=== PATIENT | female | born 1990 | race Caucasian/White ===

== ENCOUNTER 2023-01-28 19:19 | Inpatient (IN) | payer OTHER ==
[2023-01-28] MEDS ORDERED: hydrALAZINE HCL 20 MG/ML 1 ML VIAL IVP PRN ×3 (20:18)
[2023-01-28] MEDS ORDERED: LABETALOL 5 MG/ML VIAL MDV IVP PRN ×5 (20:18)
[2023-01-28] MEDS ORDERED: AMPICILLIN 2,000 MG in SODIUM CHLORIDE 0.9% 100 ML IVPB STA (20:24)
[2023-01-28] MEDS ORDERED: LIDOCAINE 0.5% (PF) 5 MG/ML (50 ML SDV) SQ PRN (20:24)
[2023-01-28] MEDS ORDERED: TERBUTALINE 1 MG/ML VIAL SQ PRN (20:24)
[2023-01-28] MEDS ORDERED: CARBOPROST TROMETHAMINE 250 MCG/ML 1 ML AMP IM PRN (20:24)
[2023-01-28] MEDS ORDERED: METHYLERGONOVINE 0.2 MG/ML 1 ML AMP IM PRN (20:24)
[2023-01-28] MEDS ORDERED: OXYTOCIN 10 UNIT/ML 1 ML VIAL IM PRN (20:24)
[2023-01-28] MEDS ORDERED: miSOPROStoL 200 MCG TAB PO PRN (20:24)
[2023-01-28] MEDS ORDERED: TRANEXAMIC 1,000 MG/100ML-NACL 1,000 MG in EMPTY BAG 1 BAG IV PRN (20:24)
[2023-01-28 20:58] LABS: Appearance,Urine Clear (Clear); Bilirubin,Urine Negative (Negative); Blood,Urine Negative (Negative); Color,Urine Light Yellow; Glucose,Urine (UA) Negative (Negative); Ketones,Urine Negative (Negative); Leukocyte Esterase,Urine Negative (Negative); Nitrite,Urine Negative (Negative); PH, Urine 6.5 (5.0-8.0); Protein,Urine Negative (Negative); Specific Gravity,Urine 1.008 (1.001-1.035); Urobilinogen,Urine <2.0 mg/dL (<2.0)
[2023-01-28] MEDS: LACTATED RINGERS 1,000 ML IV SCH (21:06)
[2023-01-28] MEDS ORDERED: CITRIC ACID-SODIUM CITRATE 15 ML CUP PO ONE (21:33)
[2023-01-28 21:58] LABS: Basophils % (A) 0 %; Eosinophils # (A) 0.4 k/uL (0-0.7); Eosinophils % (A) 3 %; HCT 40.2 % (34.0-46.0); HGB 13.2 gm/dL (11.4-16.0); Lymphocytes # (A) 1.7 k/uL (1.0-4.8); Lymphocytes % (A) 13 %; MCH 29.5 pg (25.0-35.0); MCHC 32.9 g/dL (31.0-37.0); MCV 89.5 fL (80.0-100.0); Mean Platelet Volume 8.8; Monocytes # (A) 0.7 k/uL (0-1.0); Monocytes % (A) 5 %; Neutrophils # (A) 10.3 k/uL (1.3-7.7); Neutrophils % (A) 77 %; Platelet Count 279 k/uL (150-450); RBC 4.49 m/uL (3.80-5.40); RDW 13.8 % (11.5-15.5); WBC 13.3 k/uL (3.8-10.6)
[2023-01-28] MEDS ORDERED: PROPOFOL 10 MG/ML 20 ML VIAL IV ONE (21:58)
[2023-01-28] MEDS ORDERED: SUCCINYLCHOLINE CHLORIDE 200 MG/10 ML VIAL IV ONE (21:58)
[2023-01-28] MEDS ORDERED: fentaNYL (PF) 50 MCG/ML 2 ML AMP ONE (21:58)
[2023-01-28] MEDS ORDERED: OXYTOCIN 30 UNITS/500 ML NS BAG IV ONE (21:58)
[2023-01-28] MEDS ORDERED: ONDANSETRON 4 MG/2 ML VIAL ONE (21:58)
[2023-01-28 22:06] LABS: INR 0.9 (<1.2); Partial Thromboplastin Time 23.9 sec (22.0-30.0); Prothrombin Time 9.3 sec (9.0-12.0)
[2023-01-28 22:19] LABS: Amphetamine Screen,Urine Not Detected (NotDetected); Barbiturate Screen,Urine Not Detected (NotDetected); Benzodiazepines Screen,Urine Not Detected (NotDetected); Cocaine Screen,Urine Not Detected (NotDetected); Methadone Screen, Urine Not Detected (NotDetected); Opiate Screen,Urine Not Detected (NotDetected); Oxycodone Screen, Urine Not Detected (NotDetected); Phencyclidine Screen,Urine Not Detected (NotDetected); Tricyclic Antidepressant,Urine Not Detected (NotDetected); Urn Cannabinoid Scrn Not Detected (NotDetected)
[2023-01-28 22:23] LABS: Creatinine,Urine Random 35.3 mg/dL; Protein/Creatinine Ratio,Urine 0.652
[2023-01-28] MEDS ORDERED: ZOLPIDEM 5 MG TAB PO PRN (22:33)
[2023-01-28] MEDS ORDERED: METOCLOPRAMIDE 5 MG/ML 2 ML VIAL IVP PRN (22:33)
[2023-01-28] MEDS ORDERED: NALOXONE 0.4 MG/ML 1 ML VIAL IV PRN (22:33)
[2023-01-28] MEDS ORDERED: diphenhydrAMINE 25 MG CAP PO PRN (22:33)
[2023-01-28] MEDS ORDERED: ONDANSETRON 4 MG/2 ML VIAL IVP PRN (22:33)
[2023-01-28] MEDS ORDERED: diphenhydrAMINE 50 MG CAP PO PRN (22:33)
[2023-01-28] MEDS ORDERED: SIMETHICONE 80 MG CHEWABLE PO PRN (22:33)
[2023-01-28] MEDS ORDERED: diphenhydrAMINE 50 MG/ML 1 ML VIAL IVP PRN ×2 (22:33)
--- NOTE | 2023-01-28 22:45 | P.HPOB ---
History of Present Illness H&P Date: 01/28/23 Chief Complaint: IUP at 40-5/7 weeks, severe preeclampsia, active labor This is a 32-year-old 0-1 at 40 and 5/7 weeks that presents to labor and delivery with complaints of regular painful contractions. Patient had significantly elevated blood pressures upon presentation to triage but was noted to be uncomfortable contractions. Patient was noted to be writhing in the bed. Patient states she did receive care in [place] where blood pressures were 140 to 150s over 90s no medication were given per her memory or her 's memory. Patient states that she had an ultrasound around 17 weeks for heart tones, she declined 20 week anatomy ultrasound as it was too much intervention. Patient denies signs or symptoms of preeclampsia. Her only complaint is pain with contractions. She denies loss of fluid or vaginal bleeding. RN HOSPITAL history 4 para [id number] spontaneous vaginal delivery, boy 6 pounds, states she had elevated blood pressures 160s over 90s with that delivery labor lasted approximately 18 hours labs pending states her blood type is O+ which patient confirms Review of Systems Constitutional: Denies chills, Denies fatigue, Denies fever Ears, nose, mouth and throat: Denies headache Cardiovascular: Reports leg edema Respiratory: Denies dyspnea Gastrointestinal: Denies nausea, Denies vomiting Genitourinary: Reports Past Medical History History of Any Multi-Drug Resistant Organisms: None Reported Smoking Status: Never smoker Medications and Allergies Home Medications Medication Instructions Recorded Confirmed Type Vit No.179/Iron/Folic 1 tab PO HS 01/28/23 01/28/23 History [ Tablet] Allergies Allergy/AdvReac Type Severity Reaction Status Date / Time morphine Allergy Mild Rash/Hives Verified 01/28/23 19:27 Sulfa (Sulfonamide Allergy Mild Rash/Hives Verified 01/28/23 19:27 Antibiotics) Exam Osteopathic Statement: *. No significant issues noted on an osteopathic structural exam other than those noted in the History and Physical/Consult. 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 Attempted application of scalp electrode, contractions are noted to be regular. heart tones were noted to be category 2, moderate variability, during conversation regarding plan of care heart tones are noted to have a deceleration to the 80s with some return to the 90s followed by moderate variability into the 100s. Results Result Diagrams: 01/28/23 20:40 Abnormal Lab Results - Last 24 Hours (Table) 01/28/23 Range/Units 19:28 U Random Total Protein 24 H (<12) mg/dL Assessment and Plan (1) Post-dates Narrative/Plan: Minimal care Current Visit: Yes Status: Acute Code(s): O48.0 - POST-TERM SNOMED Code(s): 43380976 (2) Severe pre-eclampsia Current Visit: Yes Status: Acute Code(s): O14.10 - SEVERE PRE-ECLAMPSIA, UNSPECIFIED TRIMESTER SNOMED Code(s): 52222214 (3) Thick meconium stained amniotic fluid Current Visit: Yes Status: Acute Code(s): P96.83 - MECONIUM STAINING SNOMED Code(s): 259340793 (4) Active labor Current Visit: Yes Status: Acute Code(s): FII5150 - SNOMED Code(s): 625573523 Plan: 32-year-old 0-1 at 40-5/7 weeks per patient and patient's presents with complaints of regular painful contractions. Patient was noted to have significantly elevated blood pressure upon presentation to triage. Blood pressures were elevated but patient was noted to be significantly painful contractions. Patient was monitored preeclampsia labs and IV labetalol were ordered. Minimal relief of blood pressure was appreciated after IV labetalol. Given category 2/3 heart tones decision was made to proceed with primary C- section secondary to nonreassuring heart tones. Patient were counseled on the need for emergent delivery secondary to severe preeclampsia, nonreassuring heart tones. They stated understanding and agreed with plan. Patient was taken back to the operating suite. Anesthesia was notified and on the way.
--- NOTE | 2023-01-28 22:53 | P.OP ---
Date of Procedure: 01/28/23 Preoperative Diagnosis: IUP at 40 5/7 weeks, meconium-stained fluid, severe preeclampsia, nonreassuring heart tones Postoperative Diagnosis: Same Procedure(s) Performed: Primary low transverse section Anesthesia: XAVIERA Surgeon: Evon Guerrero Computed Tomography Technologist #1: Renu Fernandes Estimated Blood Loss (ml): 500 IV fluids (ml): 800 Urine output (ml): 400 Pathology: other (Placenta) Condition: stable Disposition: observation Indications for Procedure: 32-year-old at 40-5/7 weeks that presented to labor and delivery with complaints of contractions. Patient minimal care in [place]. Patient had not established with a physician in the area. Patient has a history of severe preeclampsia with magnesium with her first delivery. Patient was noted have significantly elevated blood pressures upon initial presentation to triage and denied signs or symptoms of preeclampsia. Patient was placed in a labor and delivery suite where she was noted to be 5 cm, amniotomy is performed and mec onium-stained fluid was appreciated. heart tones were noted to be moderate variability category 2, while discussing plan of care with patient heart tones were noted to have a deceleration unknown origination as it was difficult to monitor given morbid obesity. Patient was counseled on heart tones into the 80s with return to 100s, moderate variability was appreciated. Patient was counseled on nonreassuring status and need for primary C- section. Patient and were counseled and questions were answered. Patient agreed with plan and was taken back to the operating suite. Operative Findings: Viable female infant delivered at 2202, weight of 5 lbs. 12 oz., Apgars of 6 and 9 at one and 5 minutes respectively. Normal uterus tubes and ovaries were appreciated. Description of Procedure: Patient was taken back to the operating suite where general anesthesia was obtained without difficulty by the anesthesia department. She was prepped and draped in normal sterile fashion in the dorsal supine position. A Pfannenstiel skin incision is made the scalpel and carried through the underlying layer fascia. The fascia was incised the midline and extended laterally. The superior aspect of the fascial incision was then grasped paz clamps, elevated and underlying rectus muscles dissected off sharply. The inferior aspect of the fascial incision was then grasped paz clamps, elevated and underlying rectus muscles dissected off sharply. Rectus muscles were in the midline the peritoneum was identified and entered. The bladder blade was then inserted into the pelvis. Hysterotomy incision was made with a scalpel as the bladder was noted to be free from the operating field. The was encountered in a vertex presentation, meconium-stained infant was appreciated. Infant was delivered in the usual fashion and handed off to waiting fur designer. Spontaneous cry was noted. The umbilical cord had been doubly clamped and cut and cord blood was taken. The placenta was delivered manually the uterus was exteriorized and cleared of all clots and debris. The uterine incision was closed 0 Vicryl in a running locked fashion a second imbricating suture was performed. Hemostasis was noted the uterus was then returned to the abdomen. The gutters were cleared of all clots and debris. A small amount bleeding was noted on the hysterotomy incision therefore a [id number] suture was used to obtain hemostasis. The hysterotomy incision was inspected hemostasis was noted. The peritoneum was then loosely reapproximated. The rectus muscles were inspected and found to be hemostatic. The fascia was then closed with 0 Vicryl in a running fashion from one lateral edge the midline and the other lateral edge the midline. Subcu tissue was irrigated found be hemostatic and closed with 3-0 Vicryl. The skin was then closed with 4-0 Vicryl subcuticular fashion.
[2023-01-28 23:04] LABS: ALT 18 U/L (4-34); AST 23 U/L (14-36); African American GFR (CKD) >90 (>60 ml/min/1.73 sqM); Blood Urea Nitrogen 11 mg/dL (7-17); LDH 186 U/L (120-246); Magnesium 1.7 mg/dL (1.6-2.3); Non-African American GFR(CKD) >90 (>60 ml/min/1.73 sqM)
[2023-01-28] MEDS ORDERED: MAGNESIUM SULFATE-WATER PMX 4 GM in WATER FOR INJECTION 1 100ML.BAG IVPB ONE (23:07)
[2023-01-28] MEDS: MAGNESIUM SULFATE-WATER PMX 20 GM in WATER FOR INJECTION 1 500ML.BAG IV SCH (23:33)
[2023-01-29] MEDS ORDERED: HYDROmorphone PCA 10 MG/50 ML BAG IV PRN
[2023-01-29] MEDS ORDERED: AMPICILLIN 1,000 MG in SODIUM CHLORIDE 0.9% 50 ML IVPB SCH (00:30)
[2023-01-29] MEDS: ACETAMINOPHEN IV (For NPO) 1,000 MG in EMPTY BAG 1 BAG IVPB SCH ×2 (00:37→08:05)
[2023-01-29] MEDS: LABETALOL 200 MG TAB PO SCH ×3 (00:39→21:01)
[2023-01-29] MEDS: LACTATED RINGERS 1,000 ML IV SCH ×6 (00:40→21:44)
[2023-01-29] MEDS: ACETAMINOPHEN TAB 500 MG TAB PO SCH ×4 (03:20→20:12)
[2023-01-29] MEDS: IBUPROFEN 600 MG TAB PO SCH ×3 (04:54→14:26)
[2023-01-29] MEDS: IBUPROFEN IV 800 MG in SODIUM CHLORIDE 0.9% 250 ML IV SCH ×3 (06:43→18:32)
[2023-01-29 07:24] LABS: Basophils % (A) 0 %; Eosinophils % (A) 0 %; HCT 33.9 % (34.0-46.0); HGB 11.5 gm/dL (11.4-16.0); Lymphocytes # (A) 1.2 k/uL (1.0-4.8); Lymphocytes % (A) 7 %; MCHC 33.9 g/dL (31.0-37.0); MCV 88.6 fL (80.0-100.0); Mean Platelet Volume 8.3; Monocytes # (A) 0.6 k/uL (0-1.0); Monocytes % (A) 3 %; Neutrophils # (A) 15.8 k/uL (1.3-7.7); Neutrophils % (A) 89 %; Platelet Count 263 k/uL (150-450); RBC 3.82 m/uL (3.80-5.40); RDW 13.7 % (11.5-15.5); WBC 17.8 k/uL (3.8-10.6)
[2023-01-29] MEDS: MAGNESIUM SULFATE-WATER PMX 20 GM in WATER FOR INJECTION 1 500ML.BAG IV SCH ×2 (08:05→17:41)
[2023-01-29] MEDS: SENNOSIDES-DOCUSATE SODIUM 1 EACH TAB PO SCH ×2 (08:36→20:15)
[2023-01-29] MEDS ORDERED: LABETALOL 200 MG TAB PO SCH (09:00)
--- NOTE | 2023-01-29 09:50 | P.PNOBGPC ---
Subjective - Subjective Principal diagnosis: Postop day 1, primary , NRFHTs, severe preeclampsia Interval history: Patient is doing well this morning. She appears comfortable in bed. She denies concerns. She states her pain is well-controlled. Her lochia is moderate. Manuel is draining clear yellow urine. Blood pressures are normal this morning, 132/52. Patient reports: Reports appetite normal, Reports voiding normally, Reports pain well controlled, Reports ambulating normally : doing well Objective - Vital Signs Latest vital signs: Vital Signs Temp Pulse Resp BP Pulse Ox 01/29/23 09:00 96.9 F L 88 18 132/58 97 01/29/23 08:00 97.5 F L 95 18 112/59 96 01/29/23 06:00 90 16 128/60 97 01/29/23 04:44 79 16 114/58 94 L 01/29/23 03:44 81 18 103/55 97 01/29/23 02:45 85 18 128/60 98 01/29/23 01:45 95 18 137/66 92 L 01/29/23 00:48 96 18 156/82 97 01/29/23 00:18 97.7 F 93 18 174/85 97 01/28/23 23:48 97.7 F 98 18 178/94 96 01/28/23 23:33 86 18 168/83 100 01/28/23 23:18 86 18 149/81 100 01/28/23 23:03 98 18 185/88 96 01/28/23 22:48 97.6 F 18 181/88 100 01/28/23 19:23 98.1 F 105 H 18 197/99 97 Intake and Output 01/28/23 01/29/23 01/29/23 22:59 06:59 14:59 Intake Total 925 426.667 Output Total 900 1000 550 Balance -900 -75 -123.333 Intake: IV 625 Intake, IV Titration 426.667 Amount Magnesium Sulfate-Water 426.667 Pmx 20 gm In Water For Injection 1 500ml.bag @ 2 GM/HR 50 mls/hr IV .Q10H [facility] Rx#:[id number] Oral 300 Output: Urine 400 830 550 Output, Quantitative 500 170 Blood Loss Other: Voiding Method Indwelling Catheter Indwelling Catheter Weight 127.006 kg - Exam Extremities: Present: normal, edema Abdomen: Present: normal appearance, soft Incision: Present: normal, dry, intact Uterus: Present: normal, firm - Labs Labs: Abnormal Lab Results - Last 24 Hours (Table) 01/28/23 01/28/23 01/28/23 Range/Units 19:28 20:40 20:40 WBC 13.3 H (3.8-10.6) k/uL Hct (34.0-46.0) % Neutrophils # 10.3 H (1.3-7.7) k/uL Fibrinogen 571 H (200-500) mg/dL Creatinine (0.52-1.04) mg/dL U Random Total Protein 24 H (<12) mg/dL 01/28/23 01/29/23 Range/Units 20:40 07:02 WBC 17.8 H (3.8-10.6) k/uL Hct 33.9 L (34.0-46.0) % Neutrophils # 15.8 H (1.3-7.7) k/uL Fibrinogen (200-500) mg/dL Creatinine 0.48 L (0.52-1.04) mg/dL U Random Total Protein (<12) mg/dL Assessment and Plan (1) Post-dates Current Visit: Yes Status: Acute Code(s): O48.0 - POST-TERM SNOMED Code(s): 67851676 (2) Severe pre-eclampsia Current Visit: Yes Status: Acute Code(s): O14.10 - SEVERE PRE-ECLAMPSIA, UNSPECIFIED TRIMESTER SNOMED Code(s): 73397732 (3) Thick meconium stained amniotic fluid Current Visit: Yes Status: Acute Code(s): P96.83 - MECONIUM STAINING SNOMED Code(s): 449187956 (4) Active labor Current Visit: Yes Status: Acute Code(s): CZW0799 - SNOMED Code(s): 664706745 (5) Non-reassuring status Current Visit: Yes Status: Acute Code(s): BNR2720 - SNOMED Code(s): 849802782 (6) S/P section Current Visit: Yes Status: Acute Code(s): Z98.891 - HISTORY OF UTERINE SCAR FROM PREVIOUS SURGERY SNOMED Code(s): 721319873 Plan: 32-year-old G4 now P2022 status post primary for nonreassuring heart tones and severe preeclampsia remote from delivery. Patient did well overnight. She is tolerating magnesium without difficulty. We'll plan to continue magnesium for 24 hours. Repeat preeclampsia labs will be ordered this morning. Pain is well-controlled with oral ibuprofen and Tylenol.
[2023-01-29 13:10] LABS: Basophils % (A) 0 %; Eosinophils # (A) 0.1 k/uL (0-0.7); Eosinophils % (A) 0 %; HCT 35.3 % (34.0-46.0); HGB 11.8 gm/dL (11.4-16.0); Lymphocytes # (A) 1.6 k/uL (1.0-4.8); Lymphocytes % (A) 10 %; MCH 30.1 pg (25.0-35.0); MCHC 33.5 g/dL (31.0-37.0); MCV 89.9 fL (80.0-100.0); Mean Platelet Volume 8.4; Monocytes # (A) 0.5 k/uL (0-1.0); Monocytes % (A) 3 %; Neutrophils # (A) 13.3 k/uL (1.3-7.7); Neutrophils % (A) 85 %; Platelet Count 299 k/uL (150-450); RBC 3.93 m/uL (3.80-5.40); RDW 14.1 % (11.5-15.5); WBC 15.6 k/uL (3.8-10.6)
[2023-01-29 13:15] LABS: ALT 18 U/L (4-34); AST 28 U/L (14-36); African American GFR (CKD) >90 (>60 ml/min/1.73 sqM); Blood Urea Nitrogen 7 mg/dL (7-17); LDH 263 U/L (120-246); Non-African American GFR(CKD) >90 (>60 ml/min/1.73 sqM); Uric Acid 4.3 mg/dL (3.7-7.4)
[2023-01-30] MEDS: PRENATAL VIT-IRON-FOLIC ACID 1 EACH TABLET PO SCH ×3 (00:09→19:45)
[2023-01-30] MEDS: IBUPROFEN 600 MG TAB PO SCH ×5 (00:20→23:40)
[2023-01-30] MEDS: ACETAMINOPHEN TAB 500 MG TAB PO SCH ×4 (03:44→19:43)
[2023-01-30] MEDS: LACTATED RINGERS 1,000 ML IV SCH (07:01)
--- NOTE | 2023-01-30 07:18 | P.PNOBGPC ---
Subjective - Subjective Principal diagnosis: Postop day 2, primary , severe preeclampsia, nonreassuring FHTs Interval history: Patient is doing well this morning. She is ambulating and voiding without difficulty. She is noting slight discomfort with ambulation. Magnesium was turned off last night. Blood pressures are slowly creeping up status post magnesium GTT. Blood pressure this morning 150s over 90s. Patient denies signs or symptoms of preeclampsia. Lochia is minimal. She is pumping as remains in the nursery. She denies nausea or vomiting is tolerating a regular diet. Patient reports: Reports appetite normal, Reports voiding normally, Reports pain well controlled, Reports ambulating normally [place]: doing well (In special care nursery) Objective - Vital Signs Latest vital signs: Vital Signs Temp Pulse Resp BP Pulse Ox 01/30/23 06:00 91 18 153/90 01/30/23 03:53 91 18 128/83 95 01/30/23 02:00 94 01/30/23 00:00 94 18 150/90 96 01/29/23 23:00 95 18 140/83 97 01/29/23 22:00 98.4 F 86 18 127/82 96 01/29/23 21:00 101 H 18 164/97 95 01/29/23 20:17 87 18 155/94 99 01/29/23 19:00 98.7 F 85 18 178/84 98 01/29/23 18:30 97.0 F L 91 18 141/69 98 01/29/23 17:00 97 18 136/62 98 01/29/23 16:00 98.5 F 89 18 154/74 98 01/29/23 15:00 98.5 F 91 18 141/65 97 01/29/23 14:00 98.0 F 93 18 139/81 97 01/29/23 13:00 97.4 F L 92 18 141/73 97 01/29/23 12:00 96.9 F L 89 18 147/73 98 01/29/23 11:00 97.2 F L 91 18 138/70 98 01/29/23 10:00 97.8 F 83 18 128/66 99 01/29/23 09:00 96.9 F L 88 18 132/58 97 01/29/23 08:00 97.5 F L 95 18 112/59 96 Intake and Output 01/29/23 01/30/23 01/30/23 22:59 06:59 14:59 Intake Total 480 293.333 Output Total 2600 2150 Balance -2120 -1856.667 Intake: Intake, IV Titration 480 293.333 Amount Magnesium Sulfate-Water 480 293.333 Pmx 20 gm In Water For Injection 1 500ml.bag @ 2 GM/HR 50 mls/hr IV .Q10H [facility] Rx#:[id number] Output: Urine 2600 2150 Other: Voiding Method Indwelling Catheter Indwelling Catheter # Voids 0 Weight 128.73 kg - Exam Extremities: Present: normal. Absent: edema Abdomen: Present: normal appearance Incision: Present: normal, intact Uterus: Present: normal, firm - Labs Labs: Abnormal Lab Results - Last 24 Hours (Table) 01/29/23 01/29/23 01/29/23 Range/Units 07:02 12:36 12:36 WBC 17.8 H 15.6 H (3.8-10.6) k/uL Hct 33.9 L (34.0-46.0) % Neutrophils # 15.8 H 13.3 H (1.3-7.7) k/uL Fibrinogen 560 H (200-500) mg/dL Lactate Dehydrogenase (120-246) U/L 01/29/23 Range/Units 12:36 WBC (3.8-10.6) k/uL Hct (34.0-46.0) % Neutrophils # (1.3-7.7) k/uL Fibrinogen (200-500) mg/dL Lactate Dehydrogenase 263 H (120-246) U/L Assessment and Plan (1) Post-dates Current Visit: Yes Status: Acute Code(s): O48.0 - POST-TERM SNOMED Code(s): 89294580 (2) Severe pre-eclampsia Current Visit: Yes Status: Acute Code(s): O14.10 - SEVERE PRE-ECLAMPSIA, UNSPECIFIED TRIMESTER SNOMED Code(s): 23619063 (3) Thick meconium stained amniotic fluid Current Visit: Yes Status: Acute Code(s): P96.83 - MECONIUM STAINING SNOMED Code(s): 483454468 (4) Active labor Current Visit: Yes Status: Acute Code(s): UMA8478 - SNOMED Code(s): 411168713 (5) Non-reassuring status Current Visit: Yes Status: Acute Code(s): UWM4972 - SNOMED Code(s): 796472906 (6) S/P section Current Visit: Yes Status: Acute Code(s): Z98.891 - HISTORY OF UTERINE SCAR FROM PREVIOUS SURGERY SNOMED Code(s): 164205570 Plan: Patient is overall doing well, will restart 200 mg twice daily given elevation of blood pressures. We'll continue to monitor blood pressures closely and adjust medication as needed. Patient is counseled on plan of care and states understanding.
[2023-01-30] MEDS: LABETALOL 200 MG TAB PO SCH ×3 (08:30→19:44)
[2023-01-30] MEDS: SENNOSIDES-DOCUSATE SODIUM 1 EACH TAB PO SCH ×2 (10:08→19:43)
[2023-01-31] MEDS: ACETAMINOPHEN TAB 500 MG TAB PO SCH ×4 (02:16→22:38)
[2023-01-31] MEDS: IBUPROFEN 600 MG TAB PO SCH ×4 (04:59→22:39)
[2023-01-31] MEDS: SENNOSIDES-DOCUSATE SODIUM 1 EACH TAB PO SCH ×2 (08:25→22:39)
[2023-01-31] MEDS: LABETALOL 200 MG TAB PO SCH ×2 (10:00→16:02)
--- NOTE | 2023-01-31 15:59 | P.PN ---
Progress Note - Text Progress Note Date: 01/31/23 32-year-old postop day 3, status post primary for severe preeclampsia, nonreassuring heart tones. Patient has had noted elevated blood pressures today 150s over 90s. Patient has been treated with labetalol 200 mg. Patient is admitted very tired and not sleeping well in the hospital. She is very anxious to go home and feels her blood pressures are worse secondary to inability to sleep. Patient states she is considering medical advice but really just wants to go home. Patient states she would like to be discharged home and manage her blood pressures at home. She made comments "don't the common different strength". She states she will "get a good blood pressure cuff and manage herself" She has had very minimal care during this and I do suspect blood pressures have been elevated for quite some time Awaiting for p.m. vitals. Patient appears comfortable in wheelchair holding her daughter. Assessment postop day 3 primary Severe preeclampsia Nonreassuring heart tones Morbid obesity Plan Discussed reasoning for continuing to monitor blood pressures and detrimental concerns regarding preeclampsia diagnosis. Long discussion regarding need to titrate labetalol dose given current blood pressures. Addressed concerns regarding discomfort in the bed, surgical bed moved into her suite. I did offer Benadryl as a sleep aid which she states "she doesn't like taking medications". She states she will "consider my medical recommendations, she trusts some of my decisions" Discussed if she requests discharge it would be AGAINST MEDICAL ADVICE. Would ideally like to monitor blood pressures through the night and if good response from labetalol doses noted plan discharge tomorrow.
[2023-02-01] MEDS: PRENATAL VIT-IRON-FOLIC ACID 1 EACH TABLET PO SCH (00:31)
[2023-02-01] MEDS: LABETALOL 200 MG TAB PO SCH ×2 (00:34→07:41)
[2023-02-01] MEDS: IBUPROFEN 600 MG TAB PO SCH ×2 (06:30→07:41)
[2023-02-01] MEDS: ACETAMINOPHEN TAB 500 MG TAB PO SCH (06:30)
[2023-02-01] MEDS: SENNOSIDES-DOCUSATE SODIUM 1 EACH TAB PO SCH (07:41)
[2023-02-01 07:49] VITALS: BP 162/100; PULSE 89; RESP 16; TEMP 98.4
== END 2023-02-01 10:30 | disposition home or self-care (01) | DRG 787 ==
LOC: FBPOP 19:19 → 4FBP 20:17
PROVIDERS: ADMIT Obstetrics & Gynecology Obstetrics; ATTEND Obstetrics & Gynecology Obstetrics
PROC: 10D00Z1 Extraction of Products of Conception, Low, Open Approach (ICD-10-PCS; principal; 2023-01-28 21:00)
DX: O14.14 Severe pre-eclampsia complicating childbirth (principal); O99.354 Diseases of the nervous system complicating childbirth; G47.00 Insomnia, unspecified; O48.0 Post-term pregnancy; O76 Abnormality in fetal heart rate and rhythm complicating labor and delivery; E66.01 Morbid (severe) obesity due to excess calories; O99.214 Obesity complicating childbirth; O77.0 Labor and delivery complicated by meconium in amniotic fluid; Z37.0 Single live birth; Z3A.40 40 weeks gestation of pregnancy; Z88.5 Allergy status to narcotic agent; Z88.2 Allergy status to sulfonamides
CPT/HCPCS: 59025; 80306; 81003; 82565; 82570; 83615; 83735; 84112; 84156; 84450; 84460; 84520; 84550; 85025; 85384; 85610; 85730; 86850; 86900; 86901; 88307; 96365; 99213

== ENCOUNTER 2023-02-04 14:09 | Emergency (ER) | payer OTHER ==
--- NOTE | 2023-02-04 14:55 | ED ---
Abdominal Pain HPI - General Source: patient, RN notes reviewed Mode of arrival: ambulatory Limitations: no limitations - History of Present Illness MD Complaint: abdominal pain <Lima Brown - Last Filed: 02/04/23 15:09> <Leah Denise - Last Filed: 02/05/23 17:47> - General Chief Complaint: Abdominal Pain Stated Complaint: fever and pain post Time Seen by Provider: 02/04/23 14:50 - History of Present Illness Initial Comments: This is a 32-year-old female who presents to the emergency department for abdominal pain. Patient had a at this facility with Dr. Guerrero on 01/28. States she had a due to concerns with her baby's heart rate at the time. She did not have much care, however her prior was complicated by preeclampsia and she was told that when she had her on 01/28 that she had elevated BP. States that over the last few days, she has been having increasing lower abdominal pain, fevers, and headaches. (Lima Brown) Patient is a 32-year-old female who presents to the emergency department for abdominal pain. Patient is 1 week . She had with Dr. Guerrero on 01/28. Patient had preeclampsia during her she takes labetalol TID. Over the past couple days patient has had bladder pain, burning with urination, fever, headache. Patient has history of urinary tract infections states this feels similar. Denies side pain, back pain. She denies nausea and vomiting. Denies changes in bowel pattern. Patient presents with elevated blood pressure, states she took her morning and afternoon dose of labetalol today. (Leah Denise) - Related Data Home Medications Medication Instructions Recorded Confirmed Vit No.179/Iron/Folic 1 tab PO HS 01/28/23 01/28/23 [ Tablet] Previous Rx's Medication Instructions Recorded Cephalexin [Keflex] 500 mg PO Q6HR #28 cap 02/04/23 Allergies Allergy/AdvReac Type Severity Reaction Status Date / Time morphine Allergy Mild Rash/Hives Verified 02/04/23 14:31 Sulfa (Sulfonamide Allergy Mild Rash/Hives Verified 02/04/23 14:31 Antibiotics) Review of Systems ROS Other: All systems not noted in ROS Statement are negative. <TracekarthikfantaLima - Last Filed: 02/04/23 15:09> ROS Other: All systems not noted in ROS Statement are negative. <CameliaLeah - Last Filed: 02/05/23 17:47> ROS Statement: Those systems with pertinent positive or pertinent negative responses have been documented in the HPI. Past Medical History Past Medical History: Hypertension Additional Past Medical History / Comment(s): preclampsia History of Any Multi-Drug Resistant Organisms: None Reported Past Surgical History: Section, Tonsillectomy Additional Past Surgical History / Comment(s): Right leg surgery, wisdom teeth extraction Past Anesthesia/Blood Transfusion Reactions: No Reported Reaction Past Psychological History: No Psychological Hx Reported Smoking Status: Never smoker Past Alcohol Use History: None Reported Past Drug Use History: None Reported - Past Family History Father Family Medical History: Hypertension Mother Family Medical History: Cancer, Hypertension Additional Family Medical History / Comment(s): Ovarian cancer <JohnfantaLima - Last Filed: 02/04/23 15:09> General Exam Limitations: no limitations <TracekarthikfantaLima - Last Filed: 02/04/23 15:09> General appearance: alert Head exam: Present: atraumatic, normocephalic, normal inspection Eye exam: Present: normal appearance, PERRL, EOMI. Absent: scleral icterus, conjunctival injection, periorbital swelling Respiratory exam: Present: normal lung sounds bilaterally. Absent: respiratory distress, wheezes, rales, rhonchi, stridor Cardiovascular Exam: Present: regular rate, normal rhythm, normal heart sounds. Absent: systolic murmur, diastolic murmur, rubs, gallop, clicks GI/Abdominal exam: Present: soft, tenderness (suprapubic ), normal bowel sounds, other ( incision healing nicely no tenderness. No surrounding erythema, swelling, warmth, fluctuance). Absent: distended, guarding, rebound, rigid Neurological exam: Present: alert Psychiatric exam: Present: normal affect, normal mood Skin exam: Present: warm, dry, intact, normal color. Absent: rash <CameliaLeah - Last Filed: 02/05/23 17:47> - General Exam Comments Initial Comments: Visual Physical Exam Vital signs reviewed General: Well-appearing, nontoxic, no acute distress. Head: Normocephalic, atraumatic Eyes: PERRLA, EOMI ENT: Airway patent Chest: Nonlabored breathing Skin: No visual rash, normal skin tone Neuro: Alert and oriented 3 Musculoskeletal: No gross abnormalities I performed the QuickNote portion of this chart. Signed Lima Brown PA-C. (Lima Brown) Course Vital Signs 02/04/23 02/04/23 02/04/23 14:19 17:03 18:32 Temperature 98.6 F 98.0 F Pulse Rate 79 85 77 Respiratory 20 16 18 Rate Blood Pressure 144/84 165/110 164/103 O2 Sat by Pulse 97 95 98 Oximetry 02/04/23 19:56 Temperature Pulse Rate 85 Respiratory 19 Rate Blood Pressure 176/129 O2 Sat by Pulse 94 L Oximetry Medical Decision Making - Lab Data Result diagrams: 02/04/23 15:31 02/04/23 15:31 <Leah Denise - Last Filed: 02/05/23 17:47> - Medical Decision Making Was pt. sent in by a medical professional or institution ([facility], CORPORATE ACCOUNTING MANAGER, urgent care, hospital, or usp...) When possible be specific @ -No Did you speak to anyone other than the patient for history (EMS, parent, family, police, friend...)? What history was obtained from this source @ -No Did you review nursing and triage notes (agree or disagree)? Why? @ -I reviewed and agree with nursing and triage notes Were old charts reviewed (outside hosp., previous admission, EMS record, old EKG, old radiological studies, urgent care reports/EKG's, usp records)? Report findings @ -Reviewed previous admission note patient did leave AMA after delivery Differential Diagnosis (chest pain, altered mental status, abdominal pain women, abdominal pain men, vaginal bleeding, weakness, fever, dyspnea, syncope, headache, dizziness, GI bleed, back pain, seizure, CVA, palpatations, mental health)? @ Differential Abdominal Pain Women: Appendicitis, Cholecystitis, diverticulosis, ischemic bowel, pancreatitis, hepatitis, UTI, gastroenteritis, AAA, incarcerated hernia, bowel obstruction, constipation, inflammatory bowel, hepatitis, peptic ulcer disease, splenic infarction, perforated viscus, vulvitis, ovarian torsion, PID, kidney stone, placenta abruption, this is not meant to be an all-inclusive list EKG interpreted by me (3pts min.). @ -As above X-rays interpreted by me (1pt min.). @ -None done CT interpreted by me (1pt min.). @ -None done U/S interpreted by me (1pt. min.). @ -None done What testing was considered but not performed or refused? (CT, X-rays, U/S, labs)? Why? @Patient declined preeclampsia testing What meds were considered but not given or refused? Why? @ -Patient declined hypertensive medication, IV fluids, pain medication because she is requesting to go home Did you discuss the management of the patient with other professionals (professionals i.e. , PA, CORPORATE ACCOUNTING MANAGER, lab, RT, psych nurse, 7th grade social studies teacher, trigonometry tutor, teacher, search and rescue officer, case filler)? Give summary @ -No Was smoking cessation discussed for >3mins.? @ -No Was critical care preformed (if so, how long)? @ -No Were there social determinants of health that impacted care today? How? (Homelessness, low income, unemployed, alcoholism, drug addiction, transportation, low edu. Level, literacy, decrease access to med. care, [facility] [facility], rehab)? @ -No Was there de-escalation of care discussed even if they declined (Discuss DNR or withdrawal of care, Hospice)? DNR status @ -No What co-morbidities impacted this encounter? (DM, HTN, Smoking, COPD, CAD, Cancer, CVA, ARF, Chemo, Hep., AIDS, mental health diagnosis, sleep apnea, mor bid obesity)? @ -None Was patient admitted / discharged? Hospital course, mention meds given and route, prescriptions, significant lab abnormalities, going to OR and other pertinent info. @ Patient presenting for abdominal pain and fever. Currently afebrile. Patient is hypertensive at 165/110. Patient in no apparent distress. Her incision is healing nicely. Labs were drawn in triage but IV was not placed. Urinalysis is consistent with infection. There is mild leukocytosis at 11.3 and thrombocytosis of 472. Results discussed with patient. Clinical presentation consistent with urinary tract infection however patient is hypertensive with preeclampsia history. I recommended further preeclampsia labs, IV fluids, IV hypertension medication. Patient declines states her blood pressure is elevated because she is in the hospital and she is requesting to go home. I highly urged patient to stay. I even offered pain medication to see a blood pressure would improve with pain relief prior to hypertensive medication. Patient declined further testing, IV fluids, hypertensive medication, pain medication. We discussed the risks of untreated preeclampsia. Patient would still like to go home. She is signing out AGAINST MEDICAL ADVICE. She is discharged with Keflex for urinary tract infection. We discussed return parameters Undiagnosed new problem with uncertain prognosis? @ -No Drug Therapy requiring intensive monitoring for toxicity (Heparin, Nitro, Ins ulin, Cardizem)? @ -No Were any procedures done? @ -No Diagnosis/symptom? @Urinary tract infection, preeclampsia Acute, or Chronic, or Acute on Chronic? @Acute Uncomplicated (without systemic symptoms) or Complicated (systemic symptoms)? @ -Uncomplicated Side effects of treatment? @ -No Exacerbation, Progression, or Severe Exacerbation? @ -No Poses a threat to life or bodily function? How? (Chest pain, USA, LA, pneumonia, PE, COPD, DKA, ARF, appy, cholecystitis, CVA, Diverticulitis, Homicidal, Suicidal, threat to staff... and all critical care pts) @ -Yes Dr. Nagy is my attending (Leah Denise) - Lab Data Lab Results 02/04/23 02/04/23 02/04/23 Range/Units 15:31 15:31 15:31 WBC 11.3 H (3.8-10.6) k/uL RBC 3.76 L (3.80-5.40) m/uL Hgb 11.1 L (11.4-16.0) gm/dL Hct 33.9 L (34.0-46.0) % MCV 90.1 (80.0-100.0) fL MCH 29.5 (25.0-35.0) pg MCHC 32.7 (31.0-37.0) g/dL RDW 14.2 (11.5-15.5) % Plt Count 472 H (150-450) k/uL MPV 7.5 Neutrophils % 63 % Lymphocytes % 23 % Monocytes % 5 % Eosinophils % 5 % Basophils % 0 % Neutrophils # 7.2 (1.3-7.7) k/uL Lymphocytes # 2.6 (1.0-4.8) k/uL Monocytes # 0.6 (0-1.0) k/uL Eosinophils # 0.6 (0-0.7) k/uL Basophils # 0.1 (0-0.2) k/uL Sodium 135 L (137-145) mmol/L Potassium 4.6 (3.5-5.1) mmol/L Chloride 106 (98-107) mmol/L Carbon Dioxide 23 (22-30) mmol/L Anion Gap 6 mmol/L BUN 14 (7-17) mg/dL Creatinine 0.68 (0.52-1.04) mg/dL Est GFR (CKD-EPI)AfAm >90 (>60 ml/min/1.73 sqM) Est GFR (CKD-EPI)NonAf >90 (>60 ml/min/1.73 sqM) Glucose 79 (74-99) mg/dL Plasma Lactic Acid Michael 0.6 L (0.7-2.0) mmol/L Uric Acid 6.9 (3.7-7.4) mg/dL Calcium 8.9 (8.4-10.2) mg/dL Magnesium 2.1 (1.6-2.3) mg/dL Total Bilirubin 0.4 (0.2-1.3) mg/dL AST 31 (14-36) U/L ALT 29 (4-34) U/L Alkaline Phosphatase 126 (38-126) U/L Total Protein 6.7 (6.3-8.2) g/dL Albumin 3.6 (3.5-5.0) g/dL Urine Color Urine Appearance (Clear) Urine pH (5.0-8.0) Ur Specific Garrison (1.001-1.035) Urine Protein (Negative) Urine Glucose (UA) (Negative) Urine Ketones (Negative) Urine Blood (Negative) Urine Nitrite (Negative) Urine Bilirubin (Negative) Urine Urobilinogen (<2.0) mg/dL Ur Leukocyte Esterase (Negative) Urine RBC (0-5) /hpf Urine WBC (0-5) /hpf Ur Squamous Epith Cells (0-4) /hpf Urine Mucus (None) /hpf 02/04/23 Range/Units 18:26 WBC (3.8-10.6) k/uL RBC (3.80-5.40) m/uL Hgb (11.4-16.0) gm/dL Hct (34.0-46.0) % MCV (80.0-100.0) fL MCH (25.0-35.0) pg MCHC (31.0-37.0) g/dL RDW (11.5-15.5) % Plt Count (150-450) k/uL MPV Neutrophils % % Lymphocytes % % Monocytes % % Eosinophils % % Basophils % % Neutrophils # (1.3-7.7) k/uL Lymphocytes # (1.0-4.8) k/uL Monocytes # (0-1.0) k/uL Eosinophils # (0-0.7) k/uL Basophils # (0-0.2) k/uL Sodium (137-145) mmol/L Potassium (3.5-5.1) mmol/L Chloride (98-107) mmol/L Carbon Dioxide (22-30) mmol/L Anion Gap mmol/L BUN (7-17) mg/dL Creatinine (0.52-1.04) mg/dL Est GFR (CKD-EPI)AfAm (>60 ml/min/1.73 sqM) Est GFR (CKD-EPI)NonAf (>60 ml/min/1.73 sqM) Glucose (74-99) mg/dL Plasma Lactic Acid Michael (0.7-2.0) mmol/L Uric Acid (3.7-7.4) mg/dL Calcium (8.4-10.2) mg/dL Magnesium (1.6-2.3) mg/dL Total Bilirubin (0.2-1.3) mg/dL AST (14-36) U/L ALT (4-34) U/L Alkaline Phosphatase (38-126) U/L Total Protein (6.3-8.2) g/dL Albumin (3.5-5.0) g/dL Urine Color Light Yellow Urine Appearance Clear (Clear) Urine pH 6.5 (5.0-8.0) Ur Specific Garrison 1.004 (1.001-1.035) Urine Protein 1+ H (Negative) Urine Glucose (UA) Negative (Negative) Urine Ketones Negative (Negative) Urine Blood Large H (Negative) Urine Nitrite Negative (Negative) Urine Bilirubin Negative (Negative) Urine Urobilinogen <2.0 (<2.0) mg/dL Ur Leukocyte Esterase Large H (Negative) Urine RBC 50 H (0-5) /hpf Urine WBC 35 H (0-5) /hpf Ur Squamous Epith Cells 4 (0-4) /hpf Urine Mucus Rare H (None) /hpf Disposition <Lima Brown - Last Filed: 02/04/23 15:09> Is patient prescribed a controlled substance at d/c from ED?: No <CameliaLeah - Last Filed: 02/05/23 17:47> Clinical Impression: UTI (urinary tract infection), Preeclampsia Disposition: LEFT AGAINST MEDICAL ADVICE Condition: Undetermined Instructions (If sedation given, give patient instructions): Preeclampsia During (ED) Additional Instructions: Your leaving AGAINST MEDICAL ADVICE. Untreated preeclampsia can lead to seizure, kidney failure, clotting problems, and even . Continue labetalol home and keep checking blood pressure. Please follow-up with your automotive painter in 1-2 days. Return to the emergency department if you experience new, concerning, or worsening symptoms Prescriptions: Cephalexin [Keflex] 500 mg PO Q6HR #28 cap Referrals: Agusto Alvarado MD [Primary Care Provider] - 1-2 days
[2023-02-04 15:57] LABS: Basophils # (A) 0.1 k/uL (0-0.2); Basophils % (A) 0 %; Eosinophils # (A) 0.6 k/uL (0-0.7); Eosinophils % (A) 5 %; HCT 33.9 % (34.0-46.0); HGB 11.1 gm/dL (11.4-16.0); Lymphocytes # (A) 2.6 k/uL (1.0-4.8); Lymphocytes % (A) 23 %; MCH 29.5 pg (25.0-35.0); MCHC 32.7 g/dL (31.0-37.0); MCV 90.1 fL (80.0-100.0); Mean Platelet Volume 7.5; Monocytes # (A) 0.6 k/uL (0-1.0); Monocytes % (A) 5 %; Neutrophils # (A) 7.2 k/uL (1.3-7.7); Neutrophils % (A) 63 %; Platelet Count 472 k/uL (150-450); RBC 3.76 m/uL (3.80-5.40); RDW 14.2 % (11.5-15.5); WBC 11.3 k/uL (3.8-10.6)
[2023-02-04 16:06] LABS: ALT 29 U/L (4-34); AST 31 U/L (14-36); African American GFR (CKD) >90 (>60 ml/min/1.73 sqM); Albumin 3.6 g/dL (3.5-5.0); Alkaline Phosphatase 126 U/L (38-126); Anion Gap 6 mmol/L; Blood Urea Nitrogen 14 mg/dL (7-17); Calcium 8.9 mg/dL (8.4-10.2); Carbon Dioxide 23 mmol/L (22-30); Chloride 106 mmol/L (98-107); Glucose 79 mg/dL (74-99); Magnesium 2.1 mg/dL (1.6-2.3); Non-African American GFR(CKD) >90 (>60 ml/min/1.73 sqM); Potassium 4.6 mmol/L (3.5-5.1); Sodium 135 mmol/L (137-145); Total Bilirubin 0.4 mg/dL (0.2-1.3); Total Protein 6.7 g/dL (6.3-8.2); Uric Acid 6.9 mg/dL (3.7-7.4)
[2023-02-04 18:34] VITALS: TEMP 98
[2023-02-04 18:45] LABS: Appearance,Urine Clear (Clear); Bilirubin,Urine Negative (Negative); Blood,Urine Large (Negative); Color,Urine Light Yellow; Glucose,Urine (UA) Negative (Negative); Ketones,Urine Negative (Negative); Leukocyte Esterase,Urine Large (Negative); Mucus,Urine Rare /hpf; Nitrite,Urine Negative (Negative); PH, Urine 6.5 (5.0-8.0); Protein,Urine 1+ (Negative); RBC,Urine 50 /hpf (0-5); Specific Gravity,Urine 1.004 (1.001-1.035); Squamous Epithelial Cell,Urine 4 /hpf (0-4); Urobilinogen,Urine <2.0 mg/dL (<2.0); WBC,Urine 35 /hpf (0-5)
[2023-02-04] MEDS ORDERED: CEPHALEXIN 500 MG CAP PO STA (19:37)
[2023-02-04 20:02] VITALS: BP 176/129; PULSE 85; RESP 19
== END 2023-02-04 20:05 | disposition left against medical advice (07) ==
LOC: EC 14:09
DX: O14.95 Unspecified pre-eclampsia, complicating the puerperium (principal); O86.20 Urinary tract infection following delivery, unspecified; N39.0 Urinary tract infection, site not specified; O16.5 Unspecified maternal hypertension, complicating the puerperium; Z88.1 Allergy status to other antibiotic agents; Z88.2 Allergy status to sulfonamides; Z53.29 Procedure and treatment not carried out because of patient's decision for other reasons
CPT/HCPCS: 36415; 80053; 81001; 83605; 83735; 84550; 85025; 87086; 99284